=== PATIENT | male | born 1990 | race American Indian/Alaskan Native ===

== ENCOUNTER 2018-04-05 22:33 | Emergency (ER) | payer OTHER ==
[2018-04-05 22:54] VITALS: BP 133/87
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
== END 2018-04-06 01:50 | disposition left against medical advice (07) ==
LOC: ED 22:33
DX: M25.511 Pain in right shoulder (principal); Z53.21 Procedure and treatment not carried out due to patient leaving prior to being seen by health care provider